=== PATIENT | male | born 1935 | race Caucasian/White ===

== ENCOUNTER 2023-06-30 14:08 | Emergency (ER) | payer OTHER ==
[~2023-06-30] VITALS: Ht 185.4 cm; Wt 72.6 kg
[2023-06-30 16:18] LABS: BASOPHILS % (AUTO) 0.7 % (0.0-2.0); EOSINOPHILS # (AUTO) 0.6 K/uL (0.0-0.7); EOSINOPHILS % (AUTO) 10.9 % (0.0-6.0); HEMATOCRIT 35 % (39-51); HEMOGLOBIN 11.4 g/dL (13.5-17.5); LYMPHOCYTES # (AUTO) 0.5 K/uL (0.8-4.8); LYMPHOCYTES % (AUTO) 9.1 % (20.0-44.0); MEAN CORPUSCULAR HEMOGLOBIN 29 PG (26.0-33.0); MEAN CORPUSCULAR HGB CONC 33 g/dl (31.0-36.0); MEAN CORPUSCULAR VOLUME 90 fL (80-96); MONOCYTES # (AUTO) 0.7 K/uL (0.1-1.30); MONOCYTES % (AUTO) 12.9 % (2.0-12.0); NEUTROPHILS # (AUTO) 3.6 K/uL (1.8-8.9); NEUTROPHILS % (AUTO) 66.4 % (43.0-81.0); PLATELET COUNT (AUTO) 121 K/uL (150-450); RED CELL DISTRIBUTION WIDTH 17.7 % (11.5-15.0); WHITE BLOOD COUNT (AUTO) 5.5 K/uL (4.3-11.0)
[2023-06-30 16:28] LABS: CALCIUM, SERUM 9.4 mg/dL (8.5-10.1); CARBON DIOXIDE 26 mmol/L (21-32); CHLORIDE 96 mmol/L (98-107); CREATININE 1.5 mg/dL (0.6-1.3); GLUCOSE 101 mg/dL (74-106); POTASSIUM 4.5 mmol/L (3.5-5.1); SODIUM SERUM 128 mmol/L (136-145); UREA NITROGEN, BLOOD 33 mg/dL (7-18)
[2023-06-30 16:34] LABS: ALANINE AMINOTRANSFERASE 21 U/L (12-78); ALBUMIN 3.1 g/dL (3.4-5.0); ALKALINE PHOSPHATASE 68 U/L (46-116); ASPARTATE AMINOTRANSFERASE 19 U/L (15-37); BILIRUBIN,DIRECT 0.2 mg/dL (0.0-0.2); BILIRUBIN,TOTAL 0.6 mg/dL (0.2-1.0); TOTAL PROTEIN, SERUM 7.2 g/dL (6.4-8.2)
[2023-06-30 16:47] LABS: LACTIC ACID 0.9 mmol/L (0.4-2.0)
[2023-06-30] MEDS ORDERED: APIX5TAB PO (18:18)
[2023-06-30] MEDS ORDERED: PSYL822P20 PO (18:18)
[2023-06-30] MEDS ORDERED: TERA5CAP4 PO (18:18)
[2023-06-30] MEDS ORDERED: GUAI1TBM19 PO (18:18)
[2023-06-30] MEDS ORDERED: CALC-1143 PO (18:18)
[2023-06-30] MEDS ORDERED: MULT-754 PO (18:18)
[2023-06-30] MEDS ORDERED: ATOR10TA PO (18:18)
[2023-06-30] MEDS ORDERED: METO50TA16 PO (18:18)
[2023-06-30] MEDS ORDERED: FURO-145 PO (18:18)
[2023-06-30] MEDS ORDERED: TRAZ-182 PO (18:48)
[2023-06-30 20:26] VITALS: BP 110/90; TEMP 98; O2SAT 97
== END 2023-06-30 20:29 | disposition short-term general hospital (02) ==
LOC: ER 15:03
DX: S40.822A Blister (nonthermal) of left upper arm, initial encounter (principal); S40.821A Blister (nonthermal) of right upper arm, initial encounter; S30.820A Blister (nonthermal) of lower back and pelvis, initial encounter; S30.821A Blister (nonthermal) of abdominal wall, initial encounter; E87.1 Hypo-osmolality and hyponatremia; Z88.0 Allergy status to penicillin; X58.XXXA Exposure to other specified factors, initial encounter; Y93.89 Activity, other specified; Y92.89 Other specified places as the place of occurrence of the external cause; Y99.8 Other external cause status
CPT/HCPCS: 36415; 80048-TC; 80076-TC; 82962-TC; 83605-TC; 85025-TC; 87040-TC

== ENCOUNTER 2023-08-18 11:08 | Inpatient (IN) | payer OTHER ==
[~2023-08-18] VITALS: Ht 185.4 cm; Wt 73.9 kg
[~2023-08-18 11:08] MED LIST: APIX5TAB PO; ATOR10TA PO; CALC-1143 PO; FURO-145 PO; GUAI1TBM19 PO; METO50TA16 PO; MULT-754 PO; PSYL822P20 PO; TERA5CAP4 PO; TRAZ-182 PO
[2023-08-18] MEDS ORDERED: VANCOMYCIN 1 GM in IV D5W 250 ML IV ONE (11:30)
[2023-08-18] MEDS ORDERED: LEVOFLOXACIN 750 MG /D5W 150ML 150 ML IV ONE (11:30)
[2023-08-18 12:04] LABS: BASOPHILS % (AUTO) 0.1 % (0.0-2.0); EOSINOPHILS % (AUTO) 0.4 % (0.0-6.0); HEMATOCRIT 38 % (39-51); HEMOGLOBIN 12.5 g/dL (13.5-17.5); LYMPHOCYTES # (AUTO) 0.2 K/uL (0.8-4.8); LYMPHOCYTES % (AUTO) 2.1 % (20.0-44.0); MEAN CORPUSCULAR HEMOGLOBIN 29 PG (26.0-33.0); MEAN CORPUSCULAR HGB CONC 33 g/dl (31.0-36.0); MEAN CORPUSCULAR VOLUME 90 fL (80-96); MONOCYTES # (AUTO) 0.3 K/uL (0.1-1.30); MONOCYTES % (AUTO) 3.1 % (2.0-12.0); NEUTROPHILS # (AUTO) 8.4 K/uL (1.8-8.9); NEUTROPHILS % (AUTO) 94.3 % (43.0-81.0); PLATELET COUNT (AUTO) 94 K/uL (150-450); RED BLOOD CELL COUNT(AUTO) 4.26 MIL/uL (4.5-6.0); RED CELL DISTRIBUTION WIDTH 18.2 % (11.5-15.0); WHITE BLOOD COUNT (AUTO) 8.9 K/uL (4.3-11.0)
[2023-08-18 12:20] LABS: CALCIUM, SERUM 8.7 mg/dL (8.5-10.1); CARBON DIOXIDE 26 mmol/L (21-32); CHLORIDE 100 mmol/L (98-107); CREATININE 1.7 mg/dL (0.6-1.3); GLUCOSE 107 mg/dL (74-106); POTASSIUM 3.8 mmol/L (3.5-5.1); SODIUM SERUM 131 mmol/L (136-145); UREA NITROGEN, BLOOD 53 mg/dL (7-18)
[2023-08-18 12:29] LABS: INR 1.08 (0.91-1.10); PARTIAL THROMBOPLASTIN TIME 21.6 SEC (24.3-34.3); PROTHROMBIN TIME 11.4 SECS (9.2-11.1)
[2023-08-18 12:31] LABS: ALANINE AMINOTRANSFERASE 43 U/L (12-78); ALKALINE PHOSPHATASE 48 U/L (46-116); ASPARTATE AMINOTRANSFERASE 26 U/L (15-37); BILIRUBIN,DIRECT 0.3 mg/dL (0.0-0.2); BILIRUBIN,TOTAL 0.7 mg/dL (0.2-1.0); TOTAL PROTEIN, SERUM 6.6 g/dL (6.4-8.2)
[2023-08-18] MEDS ORDERED: IV NS 0.9% 500 ML BAG IV ONE (13:00)
[2023-08-18] MEDS ORDERED: ASPIRIN 325 MG TABLET PO ONE (13:00)
[2023-08-18] MEDS ORDERED: FINA5TAB11 PO (13:20)
[2023-08-18] MEDS ORDERED: PRED20TA PO (13:20)
[2023-08-18] MEDS ORDERED: CLOB60CR TP (13:20)
[2023-08-18] MEDS ORDERED: ONDANSETRON HCL/PF 4 MG/2 ML VIAL IVP PRN (13:30)
[2023-08-18] MEDS ORDERED: MAGNESIUM HYDROXIDE 30 ML UDC PO PRN (13:30)
[2023-08-18] MEDS ORDERED: Z GUARD REMEDY 4 OZ OINT TP PRN (13:30)
[2023-08-18] MEDS ORDERED: ACETAMINOPHEN 325 MG TABLET PO PRN (13:30)
[2023-08-18] MEDS ORDERED: MAG HYDROX/AL HYDROX/SIMETH 30 ML UDC PO PRN (13:30)
[2023-08-18] MEDS ORDERED: ZOLPIDEM TARTRATE 5 MG TABLET PO PRN (13:30)
[2023-08-18 15:30] LABS: APPEARANCE,URINE SLIGHTLY CLOUDY (CLEAR); BILIRUBIN,URINE NEGATIVE (NEGATIVE); BLOOD, URINE TRACE-INTA Ery/uL (NEGATIVE); COLOR,URINE YELLOW (YELLOW); KETONES,URINE NEGATIVE (NEGATIVE); LEUKOCYTE ESTERASE ,URINE TRACE (NEGATIVE); NITRITE, URINE NEGATIVE (NEGATIVE); PROTEIN,URINE TRACE mg/dl (NEGATIVE); UGLUCOSE NEGATIVE (NEGATIVE); UROBILINOGEN,URINE 0.2 EU/dL (0.2)
[2023-08-18 15:39] LABS: ADD URINE CULTURE NO
[2023-08-18 15:40] LABS: TRIPLE PHOSPHATE CRYSTAL,UR Few /HPF (None Seen); URINE AMORPHOUS PHOSPHATES Moderate /HPF (None Seen)
[2023-08-18 15:41] LABS: BACTERIA,URINE 1+ /HPF (None Seen)
[2023-08-18 16:00] VITALS: BP 103/73; TEMP 97.8; O2SAT 99
[2023-08-18] MEDS ORDERED: VANCOMYCIN 500 MG in IV D5W 100ml IV ONE (16:00)
[2023-08-18 19:34] LABS: ANISOCYTOSIS 1+; BAND % (MANUAL) 13 % (0.0-5.0); LYMPHOCYTES % (MANUAL) 3 % (16-48); METAMYELOCYTES % 2 % (0-0); MONOCYTES % (MANUAL) 4 % (0-11.0); NEUTROPHILS % (MANUAL) 78 (42-76); PLATELET ESTIMATE DECREASED
[2023-08-18 20:00] VITALS: BP 100/66; TEMP 97.3; O2SAT 97
[2023-08-18] MEDS: HEPARIN SODIUM, PORCINE 5000 UNITS/1 ML VIAL SQ SCH (21:59)
[2023-08-19] VITALS: BP 114/81; TEMP 98.2; O2SAT 97
[2023-08-19 04:00] VITALS: BP 118/76; TEMP 97.9; O2SAT 99
[2023-08-19 06:56] LABS: BASOPHILS % (AUTO) 0.1 % (0.0-2.0); EOSINOPHILS # (AUTO) 0.1 K/uL (0.0-0.7); EOSINOPHILS % (AUTO) 0.4 % (0.0-6.0); HEMATOCRIT 36 % (39-51); HEMOGLOBIN 11.5 g/dL (13.5-17.5); LYMPHOCYTES # (AUTO) 0.5 K/uL (0.8-4.8); LYMPHOCYTES % (AUTO) 4.7 % (20.0-44.0); MEAN CORPUSCULAR HEMOGLOBIN 29 PG (26.0-33.0); MEAN CORPUSCULAR HGB CONC 32 g/dl (31.0-36.0); MEAN CORPUSCULAR VOLUME 91 fL (80-96); MONOCYTES # (AUTO) 0.5 K/uL (0.1-1.30); MONOCYTES % (AUTO) 4.6 % (2.0-12.0); NEUTROPHILS # (AUTO) 10.4 K/uL (1.8-8.9); NEUTROPHILS % (AUTO) 90.2 % (43.0-81.0); PLATELET COUNT (AUTO) 79 K/uL (150-450); RED BLOOD CELL COUNT(AUTO) 3.97 MIL/uL (4.5-6.0); WHITE BLOOD COUNT (AUTO) 11.5 K/uL (4.3-11.0)
[2023-08-19 07:27] LABS: CALCIUM, SERUM 8.6 mg/dL (8.5-10.1); CARBON DIOXIDE 26 mmol/L (21-32); CHLORIDE 99 mmol/L (98-107); CREATININE 1.5 mg/dL (0.6-1.3); GLUCOSE 109 mg/dL (74-106); PHOSPHORUS 3.5 mg/dL (2.5-4.9); POTASSIUM 3.7 mmol/L (3.5-5.1); SODIUM SERUM 134 mmol/L (136-145); UREA NITROGEN, BLOOD 48 mg/dL (7-18)
[2023-08-19 08:00] VITALS: BP 136/93; TEMP 97.5; O2SAT 98
[2023-08-19 08:11] LABS: CHOLESTEROL 132 mg/dL (<200); HDL CHOLESTEROL 113 mg/dL (40-60); LDL 13 mg/dL (0-99); TRIGLYCERIDES 39 mg/dL (30-150)
[2023-08-19] MEDS: HEPARIN SODIUM, PORCINE 5000 UNITS/1 ML VIAL SQ SCH (08:23)
[2023-08-19] MEDS ORDERED: ATORVASTATIN 10 MG TABLET PO SCH (09:00)
[2023-08-19] MEDS ORDERED: FINASTERIDE (5 MG) 5 MG TABLET PO SCH (09:00)
[2023-08-19] MEDS ORDERED: ASPIRIN 81 MG TAB.CHEW PO SCH (09:00)
[2023-08-19] MEDS ORDERED: DILTIAZEM HCL CD 240 MG PO SCH (09:00)
[2023-08-19] MEDS ORDERED: predniSONE 20 MG TABLET PO SCH (09:00)
[2023-08-19] MEDS ORDERED: PANTOPRAZOLE 40 MG VIAL IV SCH (09:00)
[2023-08-19] MEDS ORDERED: LIDOCAINE 1%-EPI 1:100,000 20 ML VIAL TP ONE (10:00)
[2023-08-19] MEDS ORDERED: SILVER NITRATE APPLICATOR 1 EA BOX TP SCH (10:00)
[2023-08-19] MEDS ORDERED: LEVOFLOXACIN 250 MG /D5W 50 ML 250 MG in PREMIX 1 EA IV SCH (11:00)
[2023-08-19 12:00] VITALS: BP 124/79; TEMP 97.2; O2SAT 96
[2023-08-19 14:56] LABS: BAND % (MANUAL) 3 % (0.0-5.0); EOSINOPHILS % (MANUAL) 1 % (0-4); LYMPHOCYTES % (MANUAL) 4 % (16-48); MONOCYTES % (MANUAL) 8 % (0-11.0); NEUTROPHILS % (MANUAL) 84 (42-76)
[2023-08-19 14:58] LABS: ANISOCYTOSIS 1+; PLATELET ESTIMATE DECREASED
[2023-08-19] MEDS ORDERED: VANCOMYCIN 1 GM in IV D5W 250 ML IV SCH (15:00)
[2023-08-19] MEDS ORDERED: TERAZOSIN HCL 5 MG CAPSULE PO SCH (18:00)
== END 2023-08-19 14:41 | disposition short-term general hospital (02) | DRG 280 ==
LOC: ER 11:10 → TELE-TD 15:13
PROVIDERS: ADMIT Nurse Practitioner Acute Care; ATTEND Student in an Organized Health Care Education/Training Program
PROC: 0JBJ0ZX Excision of Right Hand Subcutaneous Tissue and Fascia, Open Approach, Diagnostic (ICD-10-PCS; principal; 2023-08-19)
DX: I13.0 Hypertensive heart and chronic kidney disease with heart failure and stage 1 through stage 4 chronic kidney disease, or unspecified chronic kidney disease (principal); I21.A1 Myocardial infarction type 2; I50.33 Acute on chronic diastolic (congestive) heart failure; N17.0 Acute kidney failure with tubular necrosis; L03.116 Cellulitis of left lower limb; N17.9 Acute kidney failure, unspecified; J90 Pleural effusion, not elsewhere classified; E87.1 Hypo-osmolality and hyponatremia; N18.9 Chronic kidney disease, unspecified; I48.91 Unspecified atrial fibrillation; K40.90 Unilateral inguinal hernia, without obstruction or gangrene, not specified as recurrent; Q54.9 Hypospadias, unspecified; Z79.01 Long term (current) use of anticoagulants; Z88.0 Allergy status to penicillin; Z79.899 Other long term (current) drug therapy; Z79.82 Long term (current) use of aspirin; I95.9 Hypotension, unspecified; I73.9 Peripheral vascular disease, unspecified; F03.90 Unspecified dementia, unspecified severity, without behavioral disturbance, psychotic disturbance, mood disturbance, and anxiety; E86.1 Hypovolemia; D64.9 Anemia, unspecified; E86.0 Dehydration; N28.1 Cyst of kidney, acquired; Z91.81 History of falling; R00.0 Tachycardia, unspecified
CPT/HCPCS: 36415; 71045-TC; 76770-TC; 80048-TC; 80061-TC; 80076-TC; 81001; 83605-TC; 83735-TC; 84100-TC; 84484-TC; 85025-TC; 85730-TC; 87040-TC; 87086-TC; 87186-TC; 88305-TC; 88312-TC; 93307-TC; 93970-TC; 97116-TC; 97530-TC; A4216; A4223; A6403; C9113; G0378; J1644; J1956; J3370; J3490; J7030; J7040; J7060

== ENCOUNTER 2023-09-08 07:56 | Inpatient (IN) | payer OTHER ==
[~2023-09-08] VITALS: Ht 185.4 cm; Wt 72.6 kg
[~2023-09-08 07:56] MED LIST changes: -APIX5TAB PO; -CALC-1143 PO; +CLOB60CR TP; +FINA5TAB11 PO; -GUAI1TBM19 PO; -METO50TA16 PO; -MULT-754 PO; +PRED20TA PO; -PSYL822P20 PO; -TRAZ-182 PO
[2023-09-08] MEDS: AZTREONAM 2 G in IV NS 0.9% 100 ML IV ONE ×2 (08:30→09:30)
[2023-09-08] MEDS ORDERED: ACETAMINOPHEN ES 500 MG TABLET PO ONE (08:30)
[2023-09-08] MEDS ORDERED: DILTIAZEM HCL 50 MG IV IV ONE (08:30)
[2023-09-08] MEDS ORDERED: ACETAMINOPHEN ES 500 MG TABLET ONE (08:35)
[2023-09-08] MEDS ORDERED: DILTIAZEM HCL 50 MG IV ONE (08:36)
[2023-09-08 08:55] LABS: BASOPHILS % (AUTO) 0.5 % (0.0-2.0); EOSINOPHILS # (AUTO) 0.2 K/uL (0.0-0.7); EOSINOPHILS % (AUTO) 2.6 % (0.0-6.0); HEMATOCRIT 38 % (39-51); HEMOGLOBIN 12.1 g/dL (13.5-17.5); LYMPHOCYTES # (AUTO) 0.4 K/uL (0.8-4.8); LYMPHOCYTES % (AUTO) 5.4 % (20.0-44.0); MEAN CORPUSCULAR HEMOGLOBIN 29 PG (26.0-33.0); MEAN CORPUSCULAR HGB CONC 32 g/dl (31.0-36.0); MEAN CORPUSCULAR VOLUME 91 fL (80-96); MONOCYTES # (AUTO) 0.2 K/uL (0.1-1.30); MONOCYTES % (AUTO) 2.4 % (2.0-12.0); NEUTROPHILS # (AUTO) 6.2 K/uL (1.8-8.9); NEUTROPHILS % (AUTO) 89.1 % (43.0-81.0); PLATELET COUNT (AUTO) 102 K/uL (150-450); RED BLOOD CELL COUNT(AUTO) 4.14 MIL/uL (4.5-6.0); RED CELL DISTRIBUTION WIDTH 17.7 % (11.5-15.0)
[2023-09-08 09:11] LABS: CALCIUM, SERUM 9.6 mg/dL (8.5-10.1); CARBON DIOXIDE 29 mmol/L (21-32); CHLORIDE 99 mmol/L (98-107); CREATININE 1.8 mg/dL (0.6-1.3); GLUCOSE 126 mg/dL (74-106); SODIUM SERUM 135 mmol/L (136-145); UREA NITROGEN, BLOOD 58 mg/dL (7-18)
[2023-09-08 09:17] LABS: ALANINE AMINOTRANSFERASE 33 U/L (12-78); ALKALINE PHOSPHATASE 56 U/L (46-116); ASPARTATE AMINOTRANSFERASE 21 U/L (15-37); BILIRUBIN,DIRECT 0.3 mg/dL (0.0-0.2); BILIRUBIN,TOTAL 0.8 mg/dL (0.2-1.0); INR 1.09 (0.91-1.10); PARTIAL THROMBOPLASTIN TIME 24.8 SEC (24.3-34.3); PROTHROMBIN TIME 11.5 SECS (9.2-11.1); TOTAL PROTEIN, SERUM 7.3 g/dL (6.4-8.2)
[2023-09-08 09:47] LABS: APPEARANCE,URINE SLIGHTLY CLOUDY (CLEAR); BILIRUBIN,URINE NEGATIVE (NEGATIVE); BLOOD, URINE 1+ Ery/uL (NEGATIVE); COLOR,URINE YELLOW (YELLOW); KETONES,URINE NEGATIVE (NEGATIVE); LEUKOCYTE ESTERASE ,URINE 3+ (NEGATIVE); NITRITE, URINE POSITIVE (NEGATIVE); PH,URINE 5.5 (5.0-8.0); PROTEIN,URINE NEGATIVE (NEGATIVE); UGLUCOSE NEGATIVE (NEGATIVE); UROBILINOGEN,URINE 0.2 EU/dL (0.2)
[2023-09-08 09:59] LABS: ADD URINE CULTURE YES; BACTERIA,URINE Many /HPF (None Seen); SQUAMOUS EPITHELIAL CELL,UR Few /HPF (None Seen)
[2023-09-08] MEDS ORDERED: MEROPENEM 1 G in IV NS 0.9% 100 ML IV ONE (10:00)
[2023-09-08 10:04] LABS: LACTIC ACID 2.2 mmol/L (0.4-2.0)
[2023-09-08] MEDS ORDERED: APIX2.5T PO (10:26)
[2023-09-08] MEDS ORDERED: METO25TA20 PO (10:26)
[2023-09-08] MEDS ORDERED: TRAZ-182 PO (10:26)
[2023-09-08] MEDS ORDERED: CALC500T52 PO (10:26)
[2023-09-08] MEDS ORDERED: SENN-146 PO (10:26)
[2023-09-08] MEDS ORDERED: MULT-594 PO (10:26)
[2023-09-08] MEDS ORDERED: IV NS 0.9% 1,000 ML BAG IV ONE ×2 (10:30→11:00)
[2023-09-08] MEDS ORDERED: MAGNESIUM HYDROXIDE 30 ML UDC PO PRN (14:00)
[2023-09-08] MEDS ORDERED: MAG HYDROX/AL HYDROX/SIMETH 30 ML UDC PO PRN (14:00)
[2023-09-08] MEDS ORDERED: ONDANSETRON HCL/PF 4 MG/2 ML VIAL IVP PRN (14:00)
[2023-09-08] MEDS ORDERED: Z GUARD REMEDY 4 OZ OINT TP PRN (14:00)
[2023-09-08] MEDS ORDERED: VANCOMYCIN 1.25 GM in IV D5W 250 ML IV ONE (15:00)
[2023-09-08] MEDS ORDERED: METOPROLOL TARTRATE 25 MG TABLET PO SCH (17:00)
[2023-09-08] MEDS: FUROSEMIDE 20 MG TABLET PO SCH (17:34)
[2023-09-08] MEDS: TERAZOSIN HCL 5 MG CAPSULE PO SCH (17:35)
[2023-09-08] MEDS: TRAZODONE 50 MG TABLET PO SCH (17:36)
[2023-09-08] MEDS: APIXABAN 2.5 MG TABLET PO SCH (17:41)
[2023-09-08 20:00] VITALS: BP 144/91; TEMP 98.9; O2SAT 96
[2023-09-08] MEDS: METOPROLOL TARTRATE 50 MG TABLET PO SCH (21:45)
[2023-09-08] MEDS: MEROPENEM 500 MG in IV NS 0.9% 50 ML IV SCH (21:46)
[2023-09-08] MEDS: ACETAMINOPHEN 325 MG TABLET PO PRN (22:01)
[2023-09-08] MEDS: ZOLPIDEM TARTRATE 5 MG TABLET PO PRN (22:02)
[2023-09-09] VITALS: BP 97/69; TEMP 98.4; O2SAT 96
[2023-09-09 04:00] VITALS: BP 105/74; TEMP 97.9; O2SAT 99
[2023-09-09 05:28] LABS: ABG BASE EXCESS 2.9 mmol/L; ABG OXYGEN SATURATION 96.9 % (92.0-98.5); ABG PCO2 41.8 mmHg (35.0-45.0); ABG PH 7.435 (7.350-7.450); ABG PO2 89.8 mmHg (75.0-100.0); ABG TOTAL HEMOGLOBIN 12.1 G/dL (13.5-18.0); AaDO2 118.4 mmHg; COHb 0.6 % (0.5-1.5); MetHb 0.2 % (0.0-1.5); O2Hb 96.1 % (94.0-97.0); SITE, ABG Right Radial; VENT MODE, BG nasal cannula
[2023-09-09 06:07] LABS: BASOPHILS % (AUTO) 0.4 % (0.0-2.0); EOSINOPHILS # (AUTO) 0.1 K/uL (0.0-0.7); EOSINOPHILS % (AUTO) 2.2 % (0.0-6.0); HEMATOCRIT 35 % (39-51); HEMOGLOBIN 11.2 g/dL (13.5-17.5); LYMPHOCYTES # (AUTO) 0.5 K/uL (0.8-4.8); LYMPHOCYTES % (AUTO) 7.4 % (20.0-44.0); MEAN CORPUSCULAR HEMOGLOBIN 30 PG (26.0-33.0); MEAN CORPUSCULAR HGB CONC 32 g/dl (31.0-36.0); MEAN CORPUSCULAR VOLUME 92 fL (80-96); MONOCYTES # (AUTO) 0.4 K/uL (0.1-1.30); MONOCYTES % (AUTO) 5.6 % (2.0-12.0); NEUTROPHILS # (AUTO) 5.4 K/uL (1.8-8.9); NEUTROPHILS % (AUTO) 84.4 % (43.0-81.0); PLATELET COUNT (AUTO) 85 K/uL (150-450); RED BLOOD CELL COUNT(AUTO) 3.79 MIL/uL (4.5-6.0); RED CELL DISTRIBUTION WIDTH 18.3 % (11.5-15.0); WHITE BLOOD COUNT (AUTO) 6.4 K/uL (4.3-11.0)
[2023-09-09 06:22] LABS: CALCIUM, SERUM 8.8 mg/dL (8.5-10.1); CARBON DIOXIDE 26 mmol/L (21-32); CHLORIDE 104 mmol/L (98-107); CREATININE 1.7 mg/dL (0.6-1.3); GLUCOSE 113 mg/dL (74-106); PHOSPHORUS 4.2 mg/dL (2.5-4.9); POTASSIUM 4.4 mmol/L (3.5-5.1); SODIUM SERUM 139 mmol/L (136-145)
[2023-09-09 06:25] LABS: CHOLESTEROL 127 mg/dL (<200); HDL CHOLESTEROL 93 mg/dL (40-60); LDL 23 mg/dL (0-99); TRIGLYCERIDES 63 mg/dL (30-150)
[2023-09-09 06:30] LABS: UREA NITROGEN, BLOOD 49 mg/dL (7-18)
[2023-09-09 08:00] VITALS: BP 113/71; TEMP 98.2; O2SAT 99
[2023-09-09] MEDS: predniSONE 20 MG TABLET PO SCH ×2 (09:00→09:12)
[2023-09-09] MEDS ORDERED: SENNOSIDES/DOCUSATE SODIUM 1 UDTAB TABLET PO SCH (09:00)
[2023-09-09] MEDS: FINASTERIDE (5 MG) 5 MG TABLET PO SCH (09:11)
[2023-09-09] MEDS: ATORVASTATIN 10 MG TABLET PO SCH (09:11)
[2023-09-09] MEDS: MEROPENEM 500 MG in IV NS 0.9% 50 ML IV SCH ×2 (09:11→20:23)
[2023-09-09] MEDS: FUROSEMIDE 20 MG TABLET PO SCH (09:11)
[2023-09-09] MEDS: CALCIUM CARBONATE (1250) 500 MG TABLET PO SCH (09:12)
[2023-09-09] MEDS: METOPROLOL TARTRATE 50 MG TABLET PO SCH ×2 (09:12→21:34)
[2023-09-09] MEDS: APIXABAN 2.5 MG TABLET PO SCH ×2 (09:13→17:07)
[2023-09-09] MEDS ORDERED: MUPIROCIN OINT 2% 22 GM TUBE TP SCH (09:30)
[2023-09-09] MEDS ORDERED: IV NS 0.9% 1,000 ML IV SCH (11:00)
[2023-09-09] MEDS: SENNOSIDES/DOCUSATE SODIUM 1 TAB TABLET PO SCH (11:13)
[2023-09-09] MEDS ORDERED: VANC1PLA9 IV (11:51)
[2023-09-09] MEDS ORDERED: MERO500V23 IV (11:51)
[2023-09-09] MEDS ORDERED: METO50TA16 PO (11:51)
[2023-09-09 12:00] VITALS: BP 115/86; TEMP 98.4; O2SAT 96
[2023-09-09 13:09] LABS: ANISOCYTOSIS 1+; BAND % (MANUAL) 9 % (0.0-5.0); BASOPHILS % (MANUAL) 0 % (0.0-2.0); EOSINOPHILS % (MANUAL) 2 % (0-4); LYMPHOCYTES % (MANUAL) 6 % (16-48); MONOCYTES % (MANUAL) 4 % (0-11.0); NEUTROPHILS % (MANUAL) 79 (42-76); PLATELET ESTIMATE DECREASED
[2023-09-09] MEDS ORDERED: VANCOMYCIN 1 GM in IV D5W 250 ML IV SCH (15:00)
[2023-09-09 16:00] VITALS: BP 120/96; TEMP 98; O2SAT 97
[2023-09-09] MEDS: CLOTRIMAZOLE 1% 15 GM TUBE TP SCH (17:07)
[2023-09-09] MEDS: TERAZOSIN HCL 5 MG CAPSULE PO SCH (17:08)
[2023-09-09] MEDS: TRAZODONE 50 MG TABLET PO SCH (17:08)
[2023-09-09 20:00] VITALS: BP 138/99; TEMP 98.6; O2SAT 98
[2023-09-10] VITALS (9 sets, daily range): BP systolic 100–124; BP diastolic 69–84; TEMP 97.9–98.9; O2SAT 95–98
[2023-09-10 05:47] LABS: BASOPHILS % (AUTO) 0.5 % (0.0-2.0); EOSINOPHILS # (AUTO) 0.1 K/uL (0.0-0.7); EOSINOPHILS % (AUTO) 1.9 % (0.0-6.0); HEMATOCRIT 34 % (39-51); HEMOGLOBIN 10.6 g/dL (13.5-17.5); LYMPHOCYTES # (AUTO) 0.5 K/uL (0.8-4.8); MEAN CORPUSCULAR HEMOGLOBIN 30 PG (26.0-33.0); MEAN CORPUSCULAR HGB CONC 31 g/dl (31.0-36.0); MEAN CORPUSCULAR VOLUME 94 fL (80-96); MONOCYTES # (AUTO) 0.3 K/uL (0.1-1.30); MONOCYTES % (AUTO) 5.8 % (2.0-12.0); NEUTROPHILS # (AUTO) 4.7 K/uL (1.8-8.9); NEUTROPHILS % (AUTO) 83.8 % (43.0-81.0); PLATELET COUNT (AUTO) 95 K/uL (150-450); RED BLOOD CELL COUNT(AUTO) 3.59 MIL/uL (4.5-6.0); RED CELL DISTRIBUTION WIDTH 19.4 % (11.5-15.0); WHITE BLOOD COUNT (AUTO) 5.7 K/uL (4.3-11.0)
[2023-09-10 06:04] LABS: CREATINE KINASE, TOTAL 71 U/L (39-308)
[2023-09-10 06:06] LABS: ALANINE AMINOTRANSFERASE 23 U/L (12-78); ALBUMIN 2.3 g/dL (3.4-5.0); ALKALINE PHOSPHATASE 47 U/L (46-116); ASPARTATE AMINOTRANSFERASE 25 U/L (15-37); CARBON DIOXIDE 26 mmol/L (21-32); CHLORIDE 104 mmol/L (98-107); CREATININE 1.4 mg/dL (0.6-1.3); GLUCOSE 143 mg/dL (74-106); PHOSPHORUS 3.9 mg/dL (2.5-4.9); POTASSIUM 3.8 mmol/L (3.5-5.1); SODIUM SERUM 139 mmol/L (136-145); TOTAL PROTEIN, SERUM 6.1 g/dL (6.4-8.2); UREA NITROGEN, BLOOD 39 mg/dL (7-18)
[2023-09-10] MEDS ORDERED: MINERAL OIL/PETROLATUM,WHITE 120 GM JAR TP PRN (09:00)
[2023-09-10 09:24] LABS: BAND % (MANUAL) 1 % (0.0-5.0); EOSINOPHILS % (MANUAL) 3 % (0-4); LYMPHOCYTES % (MANUAL) 11 % (16-48); MONOCYTES % (MANUAL) 4 % (0-11.0); MYELOCYTES % 2 % (0-0); NEUTROPHILS % (MANUAL) 79 (42-76); PLATELET ESTIMATE DECREASED
[2023-09-10] MEDS: FINASTERIDE (5 MG) 5 MG TABLET PO SCH (09:25)
[2023-09-10] MEDS: SENNOSIDES/DOCUSATE SODIUM 1 TAB TABLET PO SCH (09:25)
[2023-09-10 09:26] LABS: THYROID STIMULATING HORMONE 2.014 uIU/mL (0.358-3.74)
[2023-09-10] MEDS: CALCIUM CARBONATE (1250) 500 MG TABLET PO SCH (09:26)
[2023-09-10] MEDS: METOPROLOL TARTRATE 50 MG TABLET PO SCH ×3 (09:26→17:10)
[2023-09-10] MEDS: ATORVASTATIN 10 MG TABLET PO SCH (09:26)
[2023-09-10] MEDS: APIXABAN 2.5 MG TABLET PO SCH ×2 (09:27→17:11)
[2023-09-10] MEDS: CLOTRIMAZOLE 1% 15 GM TUBE TP SCH ×4 (09:28→17:11)
[2023-09-10] MEDS: MEROPENEM 500 MG in IV NS 0.9% 50 ML IV SCH ×2 (09:31→20:30)
[2023-09-10] MEDS: MUPIROCIN OINT 2% 22 GM TUBE TP SCH ×2 (11:31→21:04)
[2023-09-10] MEDS: HYDROGEL DRESSING 90 GM TUBE TP SCH (12:09)
[2023-09-10] MEDS: DIGOXIN INJ 0.5 MG/2 ML AMPUL IV SCH ×2 (12:10→17:09)
[2023-09-10] MEDS: VANCOMYCIN 1.25 GM in IV D5W 250 ML IV SCH (15:20)
[2023-09-10] MEDS: LEVALBUTEROL HCL NEB 1.25 MG/0.5 ML VIAL.NEB NEB PRN ×2 (15:34→22:32)
[2023-09-10] MEDS: TRAZODONE 50 MG TABLET PO SCH (17:09)
[2023-09-10] MEDS: TERAZOSIN HCL 5 MG CAPSULE PO SCH (17:10)
[2023-09-10] MEDS: ACETAMINOPHEN 325 MG TABLET PO PRN (20:36)
[2023-09-11] VITALS (12 sets, daily range): BP systolic 103–145; BP diastolic 61–80; TEMP 98–99; O2SAT 95–100
[2023-09-11] MEDS ORDERED: ACETYLCYSTEINE 10% SOLN 400 MG/4 ML VIAL NEB PRN
[2023-09-11] MEDS: DIGOXIN INJ 0.5 MG/2 ML AMPUL IV SCH (00:23)
[2023-09-11] MEDS: METOPROLOL TARTRATE 50 MG TABLET PO SCH ×4 (00:24→17:26)
[2023-09-11 06:12] LABS: CALCIUM, SERUM 9.2 mg/dL (8.5-10.1); CREATININE 1.3 mg/dL (0.6-1.3)
[2023-09-11] MEDS: LEVALBUTEROL HCL NEB 1.25 MG/0.5 ML VIAL.NEB NEB PRN ×2 (06:54→20:39)
[2023-09-11] MEDS: IPRATROPIUM NEB FS 0.5 MG/2.5 ML AMPUL.NEB NEB PRN ×2 (06:54→20:39)
[2023-09-11 08:10] LABS: PTH, INTACT 11 pg/mL (15-65)
[2023-09-11] MEDS: ATORVASTATIN 10 MG TABLET PO SCH (09:13)
[2023-09-11] MEDS: SENNOSIDES/DOCUSATE SODIUM 1 TAB TABLET PO SCH (09:13)
[2023-09-11] MEDS: FINASTERIDE (5 MG) 5 MG TABLET PO SCH (09:13)
[2023-09-11] MEDS: APIXABAN 2.5 MG TABLET PO SCH ×2 (09:15→17:23)
[2023-09-11] MEDS: CALCIUM CARBONATE (1250) 500 MG TABLET PO SCH (09:20)
[2023-09-11] MEDS: MEROPENEM 500 MG in IV NS 0.9% 50 ML IV SCH ×2 (09:22→20:58)
[2023-09-11] MEDS: CLOTRIMAZOLE 1% 15 GM TUBE TP SCH ×4 (09:22→17:27)
[2023-09-11] MEDS: MUPIROCIN OINT 2% 22 GM TUBE TP SCH ×2 (09:23→21:00)
[2023-09-11] MEDS: HYDROGEL DRESSING 90 GM TUBE TP SCH (09:24)
[2023-09-11] MEDS: ACETAMINOPHEN 325 MG TABLET PO PRN (11:30)
[2023-09-11] MEDS: DILTIAZEM HCL CD 240 MG PO SCH (12:00)
[2023-09-11 12:09] LABS: *SPE A/G RATIO 0.9 (0.7-1.7); *SPE ALBUMIN 2.6 g/dL (2.9-4.4); *SPE ALPHA-1-GLOBULIN 0.3 g/dL (0.0-0.4); *SPE ALPHA-2-GLOBULIN 0.7 g/dL (0.4-1.0); *SPE BETA GLOBULIN 0.7 g/dL (0.7-1.3); *SPE GLOBULIN, TOTAL 2.9 g/dL (2.2-3.9); *SPE M-SPIKE Not Observed g/dL (Not Observed); *SPE PROTEIN TOTAL 5.5 g/dL (6.0-8.5); *SPEGAMMA GLOBULIN 1.1 g/dL (0.4-1.8)
[2023-09-11] MEDS: VANCOMYCIN 1.25 GM in IV D5W 250 ML IV SCH (15:59)
[2023-09-11] MEDS: TRAZODONE 50 MG TABLET PO SCH (17:23)
[2023-09-11] MEDS: TERAZOSIN HCL 5 MG CAPSULE PO SCH (17:26)
[2023-09-12] VITALS (16 sets, daily range): BP systolic 107–140; BP diastolic 73–89; TEMP 97.5–98.9; O2SAT 93–100
[2023-09-12] MEDS: METOPROLOL TARTRATE 50 MG TABLET PO SCH ×4 (00:13→18:00)
[2023-09-12] MEDS: ZOLPIDEM TARTRATE 5 MG TABLET PO PRN (01:50)
[2023-09-12] MEDS: IPRATROPIUM NEB FS 0.5 MG/2.5 ML AMPUL.NEB NEB PRN (02:52)
[2023-09-12] MEDS: LEVALBUTEROL HCL NEB 1.25 MG/0.5 ML VIAL.NEB NEB PRN (02:52)
[2023-09-12] MEDS ORDERED: LEVALBUTEROL HCL NEB 1.25 MG/0.5 ML VIAL.NEB NEB PRN (03:30)
[2023-09-12] MEDS ORDERED: IPRATROPIUM NEB FS 0.5 MG/2.5 ML AMPUL.NEB NEB PRN (03:30)
[2023-09-12] MEDS: LEVALBUTEROL HCL NEB 1.25 MG/0.5 ML VIAL.NEB NEB SCH ×3 (07:59→16:01)
[2023-09-12] MEDS: IPRATROPIUM NEB FS 0.5 MG/2.5 ML AMPUL.NEB NEB SCH ×3 (07:59→16:01)
[2023-09-12] MEDS: DILTIAZEM HCL CD 240 MG PO SCH (08:10)
[2023-09-12] MEDS: MUPIROCIN OINT 2% 22 GM TUBE TP SCH (08:15)
[2023-09-12] MEDS: HYDROGEL DRESSING 90 GM TUBE TP SCH (09:00)
[2023-09-12] MEDS: CLOTRIMAZOLE 1% 15 GM TUBE TP SCH ×4 (09:00→17:00)
[2023-09-12] MEDS: MEROPENEM 500 MG in IV NS 0.9% 50 ML IV SCH (09:25)
[2023-09-12] MEDS: ATORVASTATIN 10 MG TABLET PO SCH (10:35)
[2023-09-12] MEDS: CALCIUM CARBONATE (1250) 500 MG TABLET PO SCH (10:36)
[2023-09-12] MEDS: FINASTERIDE (5 MG) 5 MG TABLET PO SCH (10:37)
[2023-09-12] MEDS: SENNOSIDES/DOCUSATE SODIUM 1 TAB TABLET PO SCH (10:38)
[2023-09-12 10:50] LABS: ALBUMIN 2.2 g/dL (3.4-5.0); BILIRUBIN,TOTAL 1.1 mg/dL (0.2-1.0); CALCIUM, SERUM 9.1 mg/dL (8.5-10.1); CREATININE 1.3 mg/dL (0.6-1.3); POTASSIUM 4.1 mmol/L (3.5-5.1); TOTAL PROTEIN, SERUM 6.1 g/dL (6.4-8.2)
[2023-09-12 10:53] LABS: BASOPHILS % (AUTO) 0.5 % (0.0-2.0); EOSINOPHILS # (AUTO) 0.1 K/uL (0.0-0.7); EOSINOPHILS % (AUTO) 1.6 % (0.0-6.0); HEMATOCRIT 31 % (39-51); HEMOGLOBIN 10.3 g/dL (13.5-17.5); LYMPHOCYTES # (AUTO) 0.4 K/uL (0.8-4.8); LYMPHOCYTES % (AUTO) 7.4 % (20.0-44.0); MEAN CORPUSCULAR HEMOGLOBIN 30 PG (26.0-33.0); MEAN CORPUSCULAR HGB CONC 33 g/dl (31.0-36.0); MEAN CORPUSCULAR VOLUME 91 fL (80-96); MONOCYTES # (AUTO) 0.5 K/uL (0.1-1.30); MONOCYTES % (AUTO) 8.8 % (2.0-12.0); NEUTROPHILS # (AUTO) 4.3 K/uL (1.8-8.9); NEUTROPHILS % (AUTO) 81.7 % (43.0-81.0); PLATELET COUNT (AUTO) 73 K/uL (150-450); RED BLOOD CELL COUNT(AUTO) 3.46 MIL/uL (4.5-6.0); RED CELL DISTRIBUTION WIDTH 17.5 % (11.5-15.0); WHITE BLOOD COUNT (AUTO) 5.3 K/uL (4.3-11.0)
[2023-09-12] MEDS: APIXABAN 2.5 MG TABLET PO SCH ×2 (11:00→17:00)
[2023-09-12 11:42] LABS: LYMPHOCYTES % (MANUAL) 9 % (16-48); MONOCYTES % (MANUAL) 6 % (0-11.0); NEUTROPHILS % (MANUAL) 83 (42-76)
[2023-09-12 11:43] LABS: ANISOCYTOSIS 1+; BASOPHILS % (MANUAL) 0 % (0.0-2.0); EOSINOPHILS % (MANUAL) 2 % (0-4); PLATELET ESTIMATE DECREASED
[2023-09-12] MEDS ORDERED: OLANZAPINE 10 MG VIAL IM PRN (15:10)
[2023-09-12] MEDS: VANCOMYCIN 1.25 GM in IV D5W 250 ML IV SCH (15:45)
[2023-09-12 16:37] LABS: ABG BASE EXCESS 2.6 mmol/L; ABG OXYGEN SATURATION 90.3 % (92.0-98.5); ABG PCO2 44.3 mmHg (35.0-45.0); ABG PH 7.412 (7.350-7.450); ABG PO2 60.9 mmHg (75.0-100.0); ABG TOTAL HEMOGLOBIN 11.6 G/dL (13.5-18.0); COHb 0.4 % (0.5-1.5); MetHb 0.2 % (0.0-1.5); O2Hb 89.8 % (94.0-97.0); SITE, ABG Left Radial; VENT MODE, BG Nasal Cannula
[2023-09-12] MEDS: TERAZOSIN HCL 5 MG CAPSULE PO SCH (18:00)
[2023-09-12] MEDS: TRAZODONE 50 MG TABLET PO SCH (19:00)
[2023-09-12] MEDS ORDERED: QUETIAPINE FUMARATE 25 MG TABLET PO ONE (19:37)
== END 2023-09-12 19:55 | DRG 853 ==
LOC: ER 08:08 → TRANSITION 13:14 → TELE1 15:48
PROVIDERS: ADMIT Nurse Practitioner Acute Care; ATTEND Internal Medicine
PROC: 5A1935Z Respiratory Ventilation, Less than 24 Consecutive Hours (ICD-10-PCS; principal; 2023-09-09)
PROC: 0KBC0ZZ Excision of Right Hand Muscle, Open Approach (ICD-10-PCS; 2023-09-11)
DX: A41.50 Gram-negative sepsis, unspecified (principal); I21.A1 Myocardial infarction type 2; J96.01 Acute respiratory failure with hypoxia; N17.0 Acute kidney failure with tubular necrosis; I50.32 Chronic diastolic (congestive) heart failure; N39.0 Urinary tract infection, site not specified; I13.0 Hypertensive heart and chronic kidney disease with heart failure and stage 1 through stage 4 chronic kidney disease, or unspecified chronic kidney disease; D68.59 Other primary thrombophilia; E87.20 Acidosis, unspecified; E87.1 Hypo-osmolality and hyponatremia; N18.4 Chronic kidney disease, stage 4 (severe); L03.115 Cellulitis of right lower limb; L03.116 Cellulitis of left lower limb; L97.829 Non-pressure chronic ulcer of other part of left lower leg with unspecified severity; I87.313 Chronic venous hypertension (idiopathic) with ulcer of bilateral lower extremity; L97.819 Non-pressure chronic ulcer of other part of right lower leg with unspecified severity; Z20.822 Contact with and (suspected) exposure to COVID-19; E11.22 Type 2 diabetes mellitus with diabetic chronic kidney disease; K40.90 Unilateral inguinal hernia, without obstruction or gangrene, not specified as recurrent; Z88.0 Allergy status to penicillin; Q54.9 Hypospadias, unspecified; Z79.01 Long term (current) use of anticoagulants; Z79.4 Long term (current) use of insulin; Z79.899 Other long term (current) drug therapy; E78.5 Hyperlipidemia, unspecified; I48.91 Unspecified atrial fibrillation; D69.6 Thrombocytopenia, unspecified; I25.2 Old myocardial infarction; F03.90 Unspecified dementia, unspecified severity, without behavioral disturbance, psychotic disturbance, mood disturbance, and anxiety; I87.8 Other specified disorders of veins; Z87.09 Personal history of other diseases of the respiratory system; M89.8X9 Other specified disorders of bone, unspecified site; L97.529 Non-pressure chronic ulcer of other part of left foot with unspecified severity; D63.1 Anemia in chronic kidney disease; E11.621 Type 2 diabetes mellitus with foot ulcer; Z86.14 Personal history of Methicillin resistant Staphylococcus aureus infection; B96.89 Other specified bacterial agents as the cause of diseases classified elsewhere; S61.411A Laceration without foreign body of right hand, initial encounter; X58.XXXA Exposure to other specified factors, initial encounter; Y92.9 Unspecified place or not applicable
CPT/HCPCS: 36415; 36600; 71045-TC; 80048-TC; 80053-TC; 80061-TC; 80076-TC; 80202-TC; 81001; 82550-TC; 82803-TC; 83605-TC; 83735-TC; 83970; 84100-TC; 84155; 84165; 84439-TC; 84443-TC; 84484-TC; 85025-TC; 85730-TC; 87040-TC; 87086-TC; 87186-TC; 94799-TC; A4223; A6248; A6403; C9803; G0378; J1160; J2185; J3370; J3490; J7030; J7050; J7060